=== PATIENT | female | born 1970 | race Caucasian/White ===

== ENCOUNTER 2023-06-04 17:39 | Emergency (ER) | payer BC, SELFPAY ==
--- NOTE | ~2023-06-04 | XR_ITS ---
EXAM: XR forearm RT 2V DATE: 06/04/2023 17:58 HISTORY: Fell off scooter on Mon. Good ROM. Bruise . COMPARISON: None available. FINDINGS: Normal mineralization. No fracture or dislocation. No lytic or blastic lesion. Joint space s and physes are maintained. Calcific tendinitis at the triceps insertion. No erosion or periosteal c hange. Soft tissues within normal limits. IMPRESSION: No acute osseous finding in the right forearm. If clinical symptoms or mechanism of injur y suggest wrist or elbow injury, consider dedicated radiographs of those specific joints. Reviewed, dictated and finalized at location K. IMPRESSION: No acute osseous finding in the right forearm. If clinical symptoms or mechanism of injury suggest wrist or elbow injury, consider dedicated radio graphs of those specific joints.
[2023-06-04 17:51] VITALS: BP 117/84; PULSE 80; RESP 18; TEMP 36.8; O2SAT 99
[2023-06-04 17:52] VITALS: BP 117/84; PULSE 80; RESP 18; TEMP 36.8; O2SAT 99
--- NOTE | 2023-06-04 17:52 | ED.UPPEXIN ---
HPI - Extremity Injury (Upper) General Chief Complaint: Extremity Injury, Upper Stated Complaint: right arm injury Time Seen by Provider: 06/04/23 17:46 History of Present Illness HPI narrative: Patient presents requesting an x-ray to her right forearm. Patient states she fell for screw to err Monday and has a small bruise to right forearm no deformity no swelling normal range of motion Related Data Home Medications Medication Instructions Recorded Confirmed albuterol sulfate 90 mcg/actuation inhalation 06/04/23 aerosol inhaler atorvastatin 10 mg tablet mg 06/04/23 buprenorphine HCl 150 mcg buccal mcg buccal 06/04/23 film (Belbuca) bupropion HCl 150 mg 24 hr tablet, mg PO 06/04/23 extended release cariprazine 3 mg capsule (Vraylar) mg 06/04/23 fluoxetine 40 mg capsule mg 06/04/23 gabapentin 600 mg tablet mg 06/04/23 metformin 500 mg tablet,extended mg PO 06/04/23 release 24 hr omeprazole 40 mg capsule,delayed mg 06/04/23 release phentermine 8 mg tablet (Lomaira) mg 06/04/23 semaglutide (weight loss) 2.4 mg subcut 06/04/23 mg/0.75 mL subcutaneous pen injector (Wegovy) trazodone 50 mg tablet mg 06/04/23 umeclidinium 62.5 mcg-vilanterol inhalation 06/04/23 25 mcg/actuation powdr for inhalation (Anoro Ellipta) Allergies Allergy/AdvReac Type Severity Reaction Status Date / Time No Known Allergies Allergy Verified 06/04/23 17:50 Review of Systems Review of Systems: CONSTITUTIONAL: Denies fever, chills, or sweats. EYES: Denies visual changes, redness, or discharge. ENT: Denies rhinorrhea, congestion, sore throat, or otalgia. CARDIOVASCULAR: Denies chest pain, palpitations, or edema. RESPIRATORY: Denies cough or dyspnea. GASTROINTESTINAL: Denies abdominal pain, nausea, vomiting, or diarrhea. GENITOURINARY: Denies dysuria or hematuria. SKIN: Denies rash or itching. MUSCULOSKELETAL: Denies back pain, joint pain, or myalgia. NEUROLOGIC: Denies headache, numbness, or weakness. PSYCHIATRIC: Denies anxiety or depression. [facility] Comments At time of signature, agree with nursing past medical, surgical, social and family history. There is no relevant family history pertinent to the presenting complaint Exam Narrative: GENERAL: Well-appearing, well-nourished, and in no acute distress. HEAD: Normocephalic, atraumatic. EYES: PERRLA and EOMI. ENT: Nares clear, no rhinorrhea or epistaxis. Mucous membranes moist. NECK: Supple. CHEST: Clear to auscultation. No respiratory distress. HEART: Regular rate and rhythm. No murmur heard. Normal peripheral pulses. ABDOMEN: Soft, nontender, nondistended, normal active bowel sounds. EXTREMITIES: Normal range of motion. No edema. HAND EXAM - Skin intact, no laceration, slight bruising in various stages of healing and minimal swelling to right upper arm, no erythema, normal digit cascade with flexion of fingers, median nerve, ulnar nerve, radial nerve is intact. Normal sensation of each side of each finger, can perform `ok? sign, `cross over finger test of index and middle fingers? and `thumbs up? sign, normal thumb opposition, no scissoring. good capillary refill and radial pulse. normal flexion and extension of fingers and wrist. normal supination at wrist. Normal forearm and elbow exam. SKIN: Warm, dry, no rash. NEURO: No focal deficits. Alert and oriented x3. [place] Coma Scale Eye Opening: Spontaneous 4 [place] Coma Scale Motor: Obeys Commands 6 [place] Coma Scale Verbal: Oriented 5 Jose E Coma Scale Total 15 Course Course Level of Care: Express Care Visit Vital Signs Vital signs: Vital Signs Temperature 36.8 C 06/04/23 17:51 Pulse Rate 80 06/04/23 17:51 Respiratory Rate 18 06/04/23 17:51 Blood Pressure 117/84 06/04/23 17:51 Pulse Oximetry 99 06/04/23 17:51 Oxygen Delivery Room Air 06/04/23 17:51 Temperature 36.8 C 06/04/23 17:52 Pulse Rate 80 06/04/23 17:52 Respiratory Rate 18 06/04/23 17:52
== END 2023-06-04 18:31 | disposition home or self-care (01) ==
PROVIDERS: Emergency Provider Nurse Practitioner Family
DX: S50.11XA Contusion of right forearm, initial encounter (principal); W19.XXXA Unspecified fall, initial encounter; I10 Essential (primary) hypertension; K21.9 Gastro-esophageal reflux disease without esophagitis
CPT/HCPCS: 73090; 99213; G0463